=== PATIENT | female | born 1960 | race Caucasian/White ===

== ENCOUNTER 2016-08-18 12:24 | Emergency (ER) | payer BC ==
[2016-08-18 12:48] VITALS: BP 112/61
--- NOTE | 2016-08-18 12:55 | UC ---
Skin Complaint HPI - HPI Summary HPI Summary: She had some kind of sudden insect bite occur to the left neck three days ago. there was immediate tenderness and itching. Since then she has had increased warmth and some spread to the trapezius and neck. No fevers or chills. - History of Current Complaint Chief Complaint: UCSkin Time Seen by Provider: 08/18/16 12:36 Stated Complaint: INSECT BITE Hx Obtained From: Patient ?: No Onset/Duration: Gradual Onset, Lasting Days Skin Exposure Onset/Duration: Days Ago Timing: Constant Onset Severity: Moderate Current Severity: Moderate Location: Discrete Character: Swelling, Pruritus, Pain, Redness, Raised, Painful Aggravating: Touch Alleviating: OTC Meds, OTC Creams/Salves, Cold Compresses Associated Signs & Symptoms: Positive: Rash, Tenderness. Negative: Nausea, Vomiting, Numbness, Thirst, Diaphoresis, Weakness, Pallor, Shivering, Fever, Chills, Cough, Hoarseness, Throat Tightening, Abdominal Pain, Lightheadedness, Syncope, Drainage, Joint Swelling - Allergy/Home Medications Allergies/Adverse Reactions: Allergies Allergy/AdvReac Type Severity Reaction Status Date / Time Latex Allergy Itching Verified 08/18/16 12:29 Sulfamethoxazole AdvReac Diarrhea Verified 08/18/16 12:29 w/Trimethoprim [From Bactrim] Home Medications: Home Medications Cholecalciferol TAB* [Vitamin D TAB*] 1,000 unit PO WEEKLY 08/18/16 [History Confirmed 08/18/16] Ibuprofen TAB* [Advil TAB*] 400 mg PO Q6H PRN 08/18/16 [History Confirmed ] Review of Systems All Other Systems Reviewed And Are Negative: Yes PMH/Surg Hx/FS Hx/Imm Hx Cardiovascular History Of: Reports: Hypertension - Surgical History Surgical History: Yes Surgery Procedure, Year, and Place: tubal ligation,breast Bx,Ablation - Social History Alcohol Use: None Substance Use Type: None Smoking Status (MU): Heavy Every Day Tobacco Smoker Type: Cigarettes Amount Used/How Often: 1/2 PPD Physical Exam Triage Information Reviewed: Yes Appearance: Well-Appearing, No Pain Distress, Well-Nourished Vital Signs: Initial Vital Signs Temp 98.8 F 08/18/16 12:31 Pulse 63 08/18/16 12:31 Resp 16 08/18/16 12:31 BP 112/61 08/18/16 12:31 Pulse Ox 99 08/18/16 12:31 Vital Signs Reviewed: Yes Eye Exam: Normal ENT Exam: Normal Neck: Positive: Supple Respiratory Exam: Normal Cardiovascular Exam: Normal Abdominal Exam: Normal Musculoskeletal Exam: Normal Musculoskeletal: Positive: Strength Intact, ROM Intact, No Edema Neurological Exam: Normal Neurological: Positive: Alert, Muscle Tone Normal, Fatigued Psychological Exam: Normal Skin Exam: Other - Left trapezius papular patch of rash. the area is pink and warm and tender. there is no streaking. there is some mild induration. Course/Dx - Course Course Of Treatment: possible insect bite or wound infection versus inflammation. there are no signs of abscess or fluctuance. No systemic symptoms. - Differential Diagnoses - Skin Complaint Differential Diagnoses: Abscess, Allergic Reaction, Anaphylaxis, Angioedema, Cellulitis, Contact Dermatitis, Dehydration, Drug Rash, Eczema, Scarlatina, Jarvis-Iggy Syndrome, Tick Born Illness, Tinea, Urticaria, Varicella Zoster - Diagnoses Provider Diagnoses: insect bite. Discharge - Discharge Plan Condition: Good Disposition: HOME Prescriptions: Cephalexin CAP* [Keflex CAP*] 500 mg PO TID #21 cap Patient Education Materials: Insect Bite or Sting (ED) Referrals: Pennie Parkinson MD [Primary Care Provider] - If Needed
== END 2016-08-18 12:57 | disposition home or self-care (01) ==
LOC: UCCORT 12:24
DX: S10.96XA Insect bite of unspecified part of neck, initial encounter (principal); W57.XXXA Bitten or stung by nonvenomous insect and other nonvenomous arthropods, initial encounter; Y93.9 Activity, unspecified; Y92.9 Unspecified place or not applicable; R21 Rash and other nonspecific skin eruption; I10 Essential (primary) hypertension; Z88.2 Allergy status to sulfonamides; Z91.040 Latex allergy status; F17.210 Nicotine dependence, cigarettes, uncomplicated
CPT/HCPCS: 99212; G0463